=== PATIENT | female | born 1955 | race Caucasian/White ===

== ENCOUNTER 2019-05-08 05:25 | Emergency (ER) | payer MEDICARE, BC ==
[2019-05-08 06:18] VITALS: RESP 18
[2019-05-08] MEDS ORDERED: SODIUM CHLORIDE 0.9% 500 ML 500 ML IV STA (06:21)
[2019-05-08 06:34] LABS: Basophils % (A) 0 %; Eosinophils % (A) 1 %; HCT 37.9 % (34.0-46.0); HGB 12.8 gm/dL (11.4-16.0); Lymphocytes # (A) 0.6 k/uL (1.0-4.8); Lymphocytes % (A) 8 %; MCH 31.6 pg (25.0-35.0); MCHC 33.7 g/dL (31.0-37.0); MCV 93.8 fL (80.0-100.0); Mean Platelet Volume 5.8; Monocytes # (A) 0.3 k/uL (0-1.0); Monocytes % (A) 4 %; Neutrophils % (A) 87 %; Platelet Count 249 k/uL (150-450); RBC 4.05 m/uL (3.80-5.40)
[2019-05-08 06:39] LABS: Appearance,Urine Turbid (Clear); Bilirubin,Urine Negative (Negative); Blood,Urine Negative (Negative); Color,Urine Yellow; Glucose,Urine (UA) Negative (Negative); Ketones,Urine Trace (Negative); Leukocyte Esterase,Urine Negative (Negative); Mucus,Urine Occasional /hpf; Nitrite,Urine Negative (Negative); Protein,Urine Trace (Negative); RBC,Urine 1 /hpf (0-5); Specific Gravity,Urine 1.025 (1.001-1.035); Squamous Epithelial Cell,Urine <1 /hpf (0-4); Urobilinogen,Urine <2.0 mg/dL (<2.0); WBC,Urine 1 /hpf (0-5)
[2019-05-08 06:42] LABS: ALT 18 U/L (9-52); AST 25 U/L (14-36); African American GFR (CKD) >90 (>60 ml/min/1.73 sqM); Albumin 3.8 g/dL (3.5-5.0); Alkaline Phosphatase 61 U/L (38-126); Amylase 81 U/L (30-110); Anion Gap 10 mmol/L; Blood Urea Nitrogen 19 mg/dL (7-17); Calcium 9.6 mg/dL (8.4-10.2); Carbon Dioxide 25 mmol/L (22-30); Chloride 104 mmol/L (98-107); Glucose 116 mg/dL (74-99); Sodium 139 mmol/L (137-145); Total Bilirubin 0.3 mg/dL (0.2-1.3); Total Protein 6.3 g/dL (6.3-8.2)
--- NOTE | 2019-05-08 06:53 | ED ---
General Adult HPI - General Source: patient, EMS, RN notes reviewed Mode of arrival: EMS Limitations: no limitations <Jordon Grant - Last Filed: 05/08/19 07:52> <Stone Hsu - Last Filed: 05/08/19 08:12> - General Chief complaint: Abdominal Pain Stated complaint: Abd Pain Time Seen by Provider: 05/08/19 06:07 - History of Present Illness Initial comments: 63-year-old female with a past medical history of hysterectomy, abdominal masses presents to the emergency department for abdominal pain. Patient states the pain worsened last night before she went to bed. States she is watching TV when she felt sharp pain around her umbilicus. States that this morning this worsened and was very sharp in nature. States the pain took her breath away. Patient states that this has been ongoing for about a month on and off. She denies alleviating or aggravating factors. States that she was nauseous and vomiting today. States that her bowel movements have been normal. States she received pain medication in the ambulance helped with her pain.Patient has no other complaints at this time including shortness of breath, chest pain, nausea or vomiting, headache, or visual changes. (Jordon Grant) - Related Data Previous Rx's Medication Instructions Recorded Omeprazole 40 mg PO DAILY #20 capsule. 05/08/19 Allergies Allergy/AdvReac Type Severity Reaction Status Date / Time No Known Allergies Allergy Verified 05/08/19 05:30 Review of Systems ROS Other: All systems not noted in ROS Statement are negative. <Jordon Grant - Last Filed: 05/08/19 07:52> ROS Other: All systems not noted in ROS Statement are negative. <Stone Hsu - Last Filed: 05/08/19 08:12> ROS Statement: Those systems with pertinent positive or pertinent negative responses have been documented in the HPI. Past Medical History Past Medical History: No Reported History History of Any Multi-Drug Resistant Organisms: None Reported Past Surgical History: Hysterectomy Additional Past Surgical History / Comment(s): 12lb mass removed from abdomen 2009 Past Psychological History: No Psychological Hx Reported Smoking Status: Never smoker Past Alcohol Use History: Daily Past Drug Use History: None Reported <Jordon Grant - Last Filed: 05/08/19 07:52> General Exam Limitations: no limitations General appearance: alert, in no apparent distress Head exam: Present: atraumatic, normocephalic, normal inspection Eye exam: Present: normal appearance, PERRL, EOMI. Absent: scleral icterus, conjunctival injection, periorbital swelling Neck exam: Present: normal inspection. Absent: tenderness, meningismus, lymphadenopathy Respiratory exam: Present: normal lung sounds bilaterally. Absent: respiratory distress, wheezes, rales, rhonchi, stridor Cardiovascular Exam: Present: regular rate, normal rhythm, normal heart sounds. Absent: systolic murmur, diastolic murmur, rubs, gallop, clicks GI/Abdominal exam: Present: soft, tenderness (Minimal bilateral lower abdominal tenderness), normal bowel sounds. Absent: distended, guarding, rebound, rigid Neurological exam: Present: alert <Jordon Grant - Last Filed: 05/08/19 07:52> Course <Stone Hsu - Last Filed: 05/08/19 08:12> Vital Signs 05/08/19 05:27 Temperature 98.1 F Pulse Rate 96 Respiratory 18 Rate Blood Pressure 122/73 O2 Sat by Pulse 98 Oximetry - Reevaluation(s) Reevaluation #1: 05/08/19 08:12 PA supervision: I personally evaluate this case and do agree with the assessment and plan. CAT scan showed evidence of enteritis. Please see the complete report. (Stone Hsu) Medical Decision Making - Lab Data Result diagrams: 05/08/19 06:00 05/08/19 06:00 <Jordon Grant - Last Filed: 05/08/19 07:52> - Lab Data Result diagrams: 05/08/19 06:00 05/08/19 06:00 <Stone Hsu - Last Filed: 05/08/19 08:12> - Medical Decision Making Vitals are stable. Patient is actually resting comfortably during my examination after receiving medication in the ambulance. CBC is unremarkable. CMP does show evidence of dehydration with trace ketones in the urine. Patient was given fluids. CT abdomen and pelvis shows overall nonspecific bowel gas pattern suspicious for distal gastritis/duodenitis. This is similar pain is located in may be cause of symptoms. They're also suspicious areas of mild enterocolitis however patient does not have any diarrhea. At this time patient will be started on omeprazole and referred to GI specialists. She'll follow up with primary care in 1-2 days and return if she has any worsening symptoms. (Jordon Grant) - Lab Data Lab Results 05/08/19 05/08/19 05/08/19 Range/Units 06:00 06:00 06:00 WBC 8.0 (3.8-10.6) k/uL RBC 4.05 (3.80-5.40) m/uL Hgb 12.8 (11.4-16.0) gm/dL Hct 37.9 (34.0-46.0) % MCV 93.8 (80.0-100.0) fL MCH 31.6 (25.0-35.0) pg MCHC 33.7 (31.0-37.0) g/dL RDW 13.0 (11.5-15.5) % Plt Count 249 (150-450) k/uL Neutrophils % 87 % Lymphocytes % 8 % Monocytes % 4 % Eosinophils % 1 % Basophils % 0 % Neutrophils # 7.0 (1.3-7.7) k/uL Lymphocytes # 0.6 L (1.0-4.8) k/uL Monocytes # 0.3 (0-1.0) k/uL Eosinophils # 0.0 (0-0.7) k/uL Basophils # 0.0 (0-0.2) k/uL Sodium 139 (137-145) mmol/L Potassium 4.0 (3.5-5.1) mmol/L Chloride 104 (98-107) mmol/L Carbon Dioxide 25 (22-30) mmol/L Anion Gap 10 mmol/L BUN 19 H (7-17) mg/dL Creatinine 0.58 (0.52-1.04) mg/dL Est GFR (CKD-EPI)AfAm >90 (>60 ml/min/1.73 sqM) Est GFR (CKD-EPI)NonAf >90 (>60 ml/min/1.73 sqM) Glucose 116 H (74-99) mg/dL Plasma Lactic Acid King 1.8 (0.7-2.0) mmol/L Calcium 9.6 (8.4-10.2) mg/dL Total Bilirubin 0.3 (0.2-1.3) mg/dL AST 25 (14-36) U/L ALT 18 (9-52) U/L Alkaline Phosphatase 61 (38-126) U/L Total Protein 6.3 (6.3-8.2) g/dL Albumin 3.8 (3.5-5.0) g/dL Amylase 81 (30-110) U/L Lipase 78 (23-300) U/L Urine Color Urine Appearance (Clear) Urine pH (5.0-8.0) Ur Specific [place] (1.001-1.035) Urine Protein (Negative) Urine Glucose (UA) (Negative) Urine Ketones (Negative) Urine Blood (Negative) Urine Nitrite (Negative) Urine Bilirubin (Negative) Urine Urobilinogen (<2.0) mg/dL Ur Leukocyte Esterase (Negative) Urine RBC (0-5) /hpf Urine WBC (0-5) /hpf Ur Squamous Epith Cells (0-4) /hpf Urine Mucus (None) /hpf 05/08/19 Range/Units 06:30 WBC (3.8-10.6) k/uL RBC (3.80-5.40) m/uL Hgb (11.4-16.0) gm/dL Hct (34.0-46.0) % MCV (80.0-100.0) fL MCH (25.0-35.0) pg MCHC (31.0-37.0) g/dL RDW (11.5-15.5) % Plt Count (150-450) k/uL Neutrophils % % Lymphocytes % % Monocytes % % Eosinophils % % Basophils % % Neutrophils # (1.3-7.7) k/uL Lymphocytes # (1.0-4.8) k/uL Monocytes # (0-1.0) k/uL Eosinophils # (0-0.7) k/uL Basophils # (0-0.2) k/uL Sodium (137-145) mmol/L Potassium (3.5-5.1) mmol/L Chloride (98-107) mmol/L Carbon Dioxide (22-30) mmol/L Anion Gap mmol/L BUN (7-17) mg/dL Creatinine (0.52-1.04) mg/dL Est GFR (CKD-EPI)AfAm (>60 ml/min/1.73 sqM) Est GFR (CKD-EPI)NonAf (>60 ml/min/1.73 sqM) Glucose (74-99) mg/dL Plasma Lactic Acid King (0.7-2.0) mmol/L Calcium (8.4-10.2) mg/dL Total Bilirubin (0.2-1.3) mg/dL AST (14-36) U/L ALT (9-52) U/L Alkaline Phosphatase (38-126) U/L Total Protein (6.3-8.2) g/dL Albumin (3.5-5.0) g/dL Amylase (30-110) U/L Lipase (23-300) U/L Urine Color Yellow Urine Appearance Turbid H (Clear) Urine pH 5.0 (5.0-8.0) Ur Specific [place] 1.025 (1.001-1.035) Urine Protein Trace H (Negative) Urine Glucose (UA) Negative (Negative) Urine Ketones Trace H (Negative) Urine Blood Negative (Negative) Urine Nitrite Negative (Negative) Urine Bilirubin Negative (Negative) Urine Urobilinogen <2.0 (<2.0) mg/dL Ur Leukocyte Esterase Negative (Negative) Urine RBC 1 (0-5) /hpf Urine WBC 1 (0-5) /hpf Ur Squamous Epith Cells <1 (0-4) /hpf Urine Mucus Occasional H (None) /hpf Disposition Is patient prescribed a controlled substance at d/c from ED?: No Time of Disposition: 07:53 <Jordon Grant - Last Filed: 05/08/19 07:52> <Stone Hsu - Last Filed: 05/08/19 08:12> Clinical Impression: Duodenitis, Abdominal pain, Spasm of bowel Disposition: HOME SELF-CARE Condition: Good Instructions (If sedation given, give patient instructions): Duodenitis (ED) Additional Instructions: Please follow up with primary care in 1-2 days as well as GI. Take omeprazole as directed. Return to the emergency department if you have any worsening symptoms. Prescriptions: Omeprazole 40 mg PO DAILY #20 capsule.dr Referrals: Felicia Pompa MD [Primary Care Provider] - 1-2 days Lisa Shaw MD [STAFF PHYSICIAN] - 1-2 days
--- NOTE | 2019-05-08 07:30 | CT ---
EXAMINATION TYPE: CT abdomen pelvis w con DATE OF EXAM: 05/08/2019 HISTORY: Upper abdominal pain with history of bilateral breast cancer per patient. CT DLP: 744.5mGycm Automated Exposure Control for Dose Reduction was Utilized. CONTRAST: CT scan of the abdomen and pelvis is performed without oral but with IV Contrast, patient injected wi th 100 mL of Isovue 300. COMPARISON: None. FINDINGS: LUNG BASES: No significant abnormality is appreciated. LIVER/GB: There is subcentimeter hypodense lesion posterior right hepatic lobe axial image too small 2 small to further characterize. PANCREAS: No significant abnormality is seen. SPLEEN: No significant abnormality is seen. ADRENALS: No significant abnormality is seen. KIDNEYS: Retroaortic left renal vein which is normal variant. BOWEL: Evaluation bowel slightly suboptimal secondary to lack of enteric contrast. There are surgical sutures at level of the proximal to mid sigmoid colon left pelvis coronal image 41. Stomach is not s uspiciously dilated. There is moderate wall thickening or level of the gastric antrum and proximal fi rst portion of the duodenum. There are some fluid-filled prominent small bowel loops throughout the c entral abdomen measuring up to 2.6 cm in size with scattered air-fluid levels. No greater than 3 cm d ilatation is seen. There is a mild wall thickening are identified. There is fluid material and right- sided colonic loops. Surgical clips from appendectomy are seen at base of cecum. Some areas of mild w all thickening throughout the colon are present. Additional scattered surgical clips in the left uppe r quadrant and anterior aspect of the abdomen as well as posterior mid abdomen near the aorta are enoc ntified. UTERUS/ADNEXA: Uterus is surgically absent. Surgical clips throughout the pelvis are present. LYMPH NODES: No greater than 1cm abdominal or pelvic lymph nodes are appreciated. OSSEOUS STRUCTURES: Slight grade 1 anterolisthesis L4 on L5. Degenerative narrowing and subchondral c ystic change at pubic symphysis. OTHER: No significant additional abnormality is seen. IMPRESSION: 1. Overall nonspecific bowel gas pattern. Suspicious for distal gastritis/duodenitis. Also suspicious for additional areas of mild enterocolitis. Correlate clinically. Differential includes infectious a nd inflammatory etiologies. Evidence of several prior intra-abdominal surgeries.
[2019-05-08 08:24] VITALS: BP 121/83; PULSE 98; TEMP 98.2
== END 2019-05-08 08:23 | disposition home or self-care (01) ==
LOC: EC 05:25
DX: K29.80 Duodenitis without bleeding (principal); K58.9 Irritable bowel syndrome, unspecified; E86.0 Dehydration; Z90.710 Acquired absence of both cervix and uterus
CPT/HCPCS: 36415; 80053; 82150; 83605; 83690; 85025; 81001; 74177; 99284; 96360; Q9967

== ENCOUNTER → 2020-03-18 | Outpatient (CLI) | payer MEDICARE, BC ==
--- NOTE | 2020-03-18 16:05 | US ---
EXAMINATION TYPE: US venous doppler duplex LE DATE OF EXAM: 03/18/2020 3:54 PM COMPARISON: NONE CLINICAL HISTORY: L03.90 Cellulitis. h/o swelling and infection in left leg, was on steroids and anti biotics, no h/o dvt SIDE PERFORMED: Bilateral TECHNIQUE: The lower extremity deep venous system is examined utilizing real time linear array sonog yuridia with graded compression, doppler sonography and color-flow sonography. VESSELS IMAGED: External Iliac Vein (EIV) Common Femoral Vein Deep Femoral Vein Greater Saphenous Vein * Femoral Vein Popliteal Vein Small Saphenous Vein * Proximal Calf Veins (* superficial vessels) Right Leg: Negative for DVT Left Leg: Negative for DVT enlarged lymph nodes seen within left groin scanned upper groin at area of patients complaint on the right = normal appearing soft tissue scan seen IMPRESSION: No evidence for DVT at this time.
== END | disposition home or self-care (01) ==
LOC: RADUSWWP 15:13
PROVIDERS: ATTEND Family Medicine
DX: L03.90 Cellulitis, unspecified (principal)
CPT/HCPCS: 93970